=== PATIENT | male | born 1930 | race Two or more races ===

== ENCOUNTER 2018-09-06 09:29 | Emergency (ER) | payer OTHER ==
[~2018-09-06] VITALS: Ht 157.5 cm; Wt 63.5 kg
[2018-09-06] MEDS ORDERED: LIPITOR20 MG (09:56)
[2018-09-06] MEDS ORDERED: LIPITOR20 MG PO (17:51)
== END 2018-09-06 23:26 | disposition home or self-care (01) ==
LOC: ER 09:29
DX: S70.02XA Contusion of left hip, initial encounter (principal); S30.0XXA Contusion of lower back and pelvis, initial encounter; R10.13 Epigastric pain; R11.0 Nausea; R35.8 Other polyuria; V49.88XA Car occupant (driver) (passenger) injured in other specified transport accidents, initial encounter; Y93.89 Activity, other specified; Y92.488 Other paved roadways as the place of occurrence of the external cause; Y99.8 Other external cause status

== ENCOUNTER 2018-09-06 17:36 | Emergency (ER) | payer OTHER ==
[~2018-09-06] VITALS: Ht 160 cm; Wt 63.5 kg
[~2018-09-06 17:36] MED LIST: LIPITOR20 MG
[2018-09-06] MEDS ORDERED: LIPITOR20 MG PO (17:51)
== END 2018-09-06 23:58 | disposition home or self-care (01) ==
LOC: ER 17:36
DX: S30.0XXD Contusion of lower back and pelvis, subsequent encounter (principal); R35.8 Other polyuria; V49.88XD Car occupant (driver) (passenger) injured in other specified transport accidents, subsequent encounter

== ENCOUNTER 2018-10-23 08:36 | Outpatient (CLI) | payer OTHER ==
[~2018-10-23 08:36] MED LIST changes: +LIPITOR20 MG PO
== END 2018-10-23 14:23 | disposition home or self-care (01) ==
LOC: LAB 08:36
DX: R10.32 Left lower quadrant pain (principal); K59.00 Constipation, unspecified

== ENCOUNTER 2018-10-29 07:48 | Outpatient (CLI) | payer OTHER | END 2018-10-29 08:03 | disposition home or self-care (01) | LOC: LAB 07:48 | DX: R10.32 Left lower quadrant pain (principal); K59.00 Constipation, unspecified; E11.9 Type 2 diabetes mellitus without complications; E78.49 Other hyperlipidemia ==

== ENCOUNTER 2018-10-29 09:09 | Outpatient (CLI) | payer OTHER | END 2018-10-29 09:21 | disposition home or self-care (01) | LOC: MRI 09:09 | DX: M54.17 Radiculopathy, lumbosacral region (principal) | CPT/HCPCS: 72148 ==

== ENCOUNTER 2019-04-09 07:37 | Outpatient (CLI) | payer OTHER | END 2019-04-09 07:42 | disposition home or self-care (01) | LOC: RAD 07:37 | DX: M54.5 Low back pain (principal) ==